=== PATIENT | male | born 1950 | race Caucasian/White ===

== ENCOUNTER → 2016-11-11 | Outpatient (CLI) | payer MEDICARE, MEDICAID ==
[~2016-11-11] MED LIST: ALLO300T PO; ATOR40TA78 PO; CANA1TAB4 PO; CEPH-376 PO; COLC0.6T37 PO; ERGO500017 PO; FENO145T13 PO; FLUO20CA8 PO; GLYB5TAB3 PO; HYDR-3307 PO; INSU100I29 SC; INSU100V11 SC; LISI-170 PO; METF850T2 PO; OXYC1TAB7 PO; PIOG15TA22 PO; SIMV20TA3 PO
== END | disposition home or self-care (01) ==
LOC: CFH 12:32
PROVIDERS: ATTEND Nurse Practitioner Family
DX: N62 Hypertrophy of breast (principal)
CPT/HCPCS: G0204

== ENCOUNTER → 2019-09-07 | Outpatient (CLI) | payer MEDICARE, MEDICAID ==
[~2019-09-07] MED LIST changes: +ALLO100T30 PO; +DULA1.5P SC; +DULO20CA45 PO; +EMPA10TA PO; -FENO145T13 PO; +FENO145T19 PO; +FLUO20CA23 PO; -FLUO20CA8 PO; +HYDR-3246 PO; -HYDR-3307 PO; +INSU100I13 SC; +LISI-167 PO; +METF500T17 PO; +METF850T10 PO; -METF850T2 PO; +SIMV20TA19 PO; -SIMV20TA3 PO
== END | disposition home or self-care (01) ==
LOC: STAR 14:36
PROVIDERS: ATTEND Internal Medicine Gastroenterology
DX: Z01.818 Encounter for other preprocedural examination (principal); R11.0 Nausea; R19.5 Other fecal abnormalities; E66.9 Obesity, unspecified; R94.31 Abnormal electrocardiogram [ECG] [EKG]
CPT/HCPCS: 93005

== ENCOUNTER 2019-09-23 10:15 | Day surgery (SDC) | payer MEDICARE, MEDICAID ==
[~2019-09-23] VITALS: Ht 177.8 cm; Wt 159.0 kg
[2019-09-23] MEDS ORDERED: LACTATED RINGERS 1,000 ML IV SCH (10:29)
[2019-09-23] MEDS ORDERED: CHLORHEXIDINE 15 ML UDC MM STA (10:29)
[2019-09-23 10:48] VITALS: BP 129/86
[2019-09-23] MEDS ORDERED: ONDANSETRON 2MG/ML, 2ML IVPush PRN ×2 (12:00→13:30)
[2019-09-23] MEDS ORDERED: ONDANSETRON 2MG/ML, 2ML ONE (12:40)
[2019-09-23] MEDS ORDERED: SUCCINYLCHOLINE 20 MG/ML, 10ML ONE (12:40)
[2019-09-23] MEDS ORDERED: PROPOFOL 10 MG/ML, 20ML ONE (12:40)
[2019-09-23] MEDS ORDERED: ALBUTEROL SULFATE 2.5 MG/3 ML NPPB PRN (13:30)
[2019-09-23] MEDS ORDERED: HYDROmorphone 1 MG/ML, 1ML INJ IV PRN (13:30)
[2019-09-23] MEDS ORDERED: METOCLOPRAMIDE 5 MG/ML, 2ML IV PRN (13:30)
[2019-09-23] MEDS ORDERED: hydrALAzine 20 MG/ML, 1ML IV PRN (13:30)
[2019-09-23] MEDS ORDERED: OXYcodone 5 MG/5 ML ORAL.SOL UDC PO PRN (13:30)
[2019-09-23] MEDS ORDERED: KETOROLAC 30 MG/1 ML IV PRN (13:30)
[2019-09-23] MEDS ORDERED: DIAZEPAM 5 MG/ML, 2ML IV PRN ×2 (13:30)
[2019-09-23] MEDS ORDERED: LABETALOL 5MG/ML, 20ML IV PRN (13:30)
[2019-09-23] MEDS ORDERED: FENTANYL PF 100 MCG/2ML IV PRN (13:30)
[2019-09-23] MEDS ORDERED: PROMETHAZINE 25 MG/ML, 1ML IV PRN (13:30)
[2019-09-23] MEDS ORDERED: MEPERIDINE/PF 25MG/0.5ML IVPush PRN (13:30)
== END 2019-09-23 15:00 | disposition home or self-care (01) ==
LOC: OUT 10:15
PROVIDERS: ATTEND Internal Medicine Gastroenterology
DX: R11.2 Nausea with vomiting, unspecified (principal); D12.3 Benign neoplasm of transverse colon; K57.30 Diverticulosis of large intestine without perforation or abscess without bleeding; I12.9 Hypertensive chronic kidney disease with stage 1 through stage 4 chronic kidney disease, or unspecified chronic kidney disease; E11.22 Type 2 diabetes mellitus with diabetic chronic kidney disease; N18.9 Chronic kidney disease, unspecified; E78.5 Hyperlipidemia, unspecified; G47.33 Obstructive sleep apnea (adult) (pediatric); E66.9 Obesity, unspecified; Z79.899 Other long term (current) drug therapy; Z79.4 Long term (current) use of insulin; Z79.84 Long term (current) use of oral hypoglycemic drugs; Z91.018 Allergy to other foods; Z68.43 Body mass index [BMI] 50.0-59.9, adult; Z98.84 Bariatric surgery status; Z82.49 Family history of ischemic heart disease and other diseases of the circulatory system
CPT/HCPCS: 36415; 43235; 45385; 82962; 87635; 88305; J0330; J2405; J2704